=== PATIENT | female | born 1985 | race Hispanic/Latino ===

== ENCOUNTER 2018-12-16 22:04 | Emergency (ER) | payer SELFPAY ==
[2018-12-16 22:48] VITALS: BP 112/81
[2018-12-16] MEDS ORDERED: XYLOCAINE 1% MPF 5 mL INFILTRATI ONE (23:41)
[2018-12-16] MEDS ORDERED: ZITHROMAX PO ONE (23:41)
[2018-12-16] MEDS ORDERED: ROCEPHIN IM ONE (23:41)
[2018-12-17 00:10] LABS: HCG Qualitative,Urine Negative (Negative)
--- NOTE | 2018-12-17 00:43 | Emergency Department Report ---
ED Female HPI - General Chief complaint: Urogenital-Female Stated complaint: POSSIBLE STD Time Seen by Provider: 12/16/18 22:43 Source: patient Mode of arrival: Ambulatory Limitations: No Limitations - History of Present Illness Initial comments: Patient is A2 33-year-old white female who presents to the ED with complaint of vaginal discharge and states that she would like to be evaluated and tested for sexually transmitted disease because her sexual partner was recently tested and treated for chlamydia and gonorrhea. Patient denies fever, chills, dysuria, urinary frequency and urgency, pelvic pain, headache, chest pain or shortness of breath. MD Complaint: vaginal discharge, possible STD -: Sudden, days(s) (3) Location: suprapubic Radiation: non-radiating Severity: mild Severity scale (0 -10): 2 Quality: dull, burning Consistency: intermittent Improves with: none Worsens with: urination Are you Now?: No Last Menstrual Period: 12/09/18 EDC: 09/15/19 Associated Symptoms: denies other symptoms, vaginal discharge. denies: vaginal bleeding, abdominal pain, nausea/vomiting, fever/chills, headaches, loss of appetite, dysuria, hematuria, rash, seizure, shortness of breath, syncope - Related Data Sexually active: Yes : 4 Para: 2 A: 2 Previous Rx's Medication Instructions Recorded Last Taken Type methOCARBAMOL [Robaxin TAB] 500 mg PO Q6H PRN #14 tablet 08/30/18 Unknown Rx traMADol [Ultram] 50 mg PO Q6HR PRN #12 tablet 08/30/18 Unknown Rx Ondansetron [Zofran Odt] 4 mg PO Q6HR PRN #15 tab.rapdis 12/17/18 Unknown Rx metroNIDAZOLE [Flagyl] 500 mg PO Q12HR #20 tab 12/17/18 Unknown Rx Allergies Allergy/AdvReac Type Severity Reaction Status Date / Time acetaminophen [From Tylenol] Allergy Unknown Verified 08/30/18 13:58 ibuprofen [From Motrin] Allergy Unknown Verified 08/30/18 13:58 ED Review of Systems ROS: Stated complaint: POSSIBLE STD Other details as noted in HPI Comment: All other systems reviewed and negative Constitutional: denies: chills, fever Eyes: denies: eye pain, eye discharge, vision change ENT: denies: ear pain, throat pain Respiratory: denies: cough, shortness of breath, wheezing Cardiovascular: denies: chest pain, palpitations Endocrine: no symptoms reported Gastrointestinal: denies: abdominal pain, nausea, diarrhea Genitourinary: urgency, frequency, discharge. denies: dysuria, hematuria, abnormal menses, dyspareunia Musculoskeletal: denies: back pain, joint swelling, arthralgia Skin: denies: rash, lesions Neurological: denies: headache, weakness, paresthesias Psychiatric: denies: anxiety, depression Hematological/Lymphatic: denies: easy bleeding, easy bruising ED Past Medical Hx - Past Medical History Previous Medical History?: Yes Additional medical history: Vaginal delivery x 2, increased spinal fluid with headaches - Surgical History Past Surgical History?: Yes Hx Cholecystectomy: Yes Additional Surgical History: multiple spinal taps - Social History Smoking Status: Never Smoker Substance Use Type: None - Medications Home Medications: Home Medications Medication Instructions Recorded Confirmed Last Taken Type methOCARBAMOL [Robaxin TAB] 500 mg PO Q6H PRN #14 tablet 08/30/18 Unknown Rx traMADol [Ultram] 50 mg PO Q6HR PRN #12 tablet 08/30/18 Unknown Rx Ondansetron [Zofran Odt] 4 mg PO Q6HR PRN #15 tab.rapdis 12/17/18 Unknown Rx metroNIDAZOLE [Flagyl] 500 mg PO Q12HR #20 tab 12/17/18 Unknown Rx ED Physical Exam - General Limitations: No Limitations General appearance: alert, in no apparent distress - Head Head exam: Present: atraumatic, normocephalic, normal inspection - Eye Eye exam: Present: normal appearance, PERRL, EOMI. Absent: scleral icterus, conjunctival injection, nystagmus Pupils: Present: normal accommodation - ENT ENT exam: Present: normal exam, normal orophraynx, mucous membranes moist, TM's normal bilaterally, normal external ear exam - Neck Neck exam: Present: normal inspection, full ROM - Respiratory Respiratory exam: Present: normal lung sounds bilaterally. Absent: respiratory distress, wheezes, rales, rhonchi, chest wall tenderness, accessory muscle use, prolonged expiratory - Cardiovascular Cardiovascular Exam: Present: regular rate, normal rhythm, normal heart sounds. Absent: systolic murmur, diastolic murmur, rubs, gallop - GI/Abdominal GI/Abdominal exam: Present: soft, normal bowel sounds. Absent: distended, tenderness, guarding, rebound, hyperactive bowel sounds, hypoactive bowel sounds, organomegaly, bruit - Bi-manual exam: Present: other (deferred) - Extremities Exam Extremities exam: Present: normal inspection, full ROM, normal capillary refill - Back Exam Back exam: Present: normal inspection, full ROM. Absent: tenderness, CVA tenderness (R), CVA tenderness (L), muscle spasm, paraspinal tenderness, vertebral tenderness - Neurological Exam Neurological exam: Present: alert, oriented X3, CN II-XII intact, normal gait, reflexes normal - Psychiatric Psychiatric exam: Present: normal affect, normal mood - Skin Skin exam: Present: warm, dry, intact, normal color. Absent: rash ED Course Vital Signs 12/16/18 22:43 Temperature 98.8 F Pulse Rate 97 H Respiratory 16 Rate Blood Pressure 112/81 O2 Sat by Pulse 97 Oximetry - Reevaluation(s) Reevaluation #1: 12/17/18 02:09 This is 33-year-old white female who presented to the ED for evaluation for STD after being exposed by her sexual partner. In the ED, patient is alert and jaime ented 3 and is not in distress. Chlamydia and gonorrhea tests are pending. Urinalysis is unremarkable. Patient was empirically treated for gonorrhea and Chlamydia in the ED and discharged home on Flagyl for suspected trichomoniasis infection. The patient was advised to follow up with [facility] for further tests for STD. Patient is advised to return to the ED immediately if symptoms get worse. ED Medical Decision Making - Medical Decision Making This is 33-year-old white female who presented to the ED for evaluation for STD after being exposed by her sexual partner. In the ED, patient is alert and oriented 3 and is not in distress. Chlamydia and gonorrhea tests are pending. Urinalysis is unremarkable. Patient was empirically treated for gonorrhea and Chlamydia in the ED and discharged home on Flagyl for suspected trichomoniasis infection. The patient was advised to follow up with [facility] for further tests for STD. Patient is advised to return to the ED immediately if symptoms get worse. - Differential Diagnosis STD; Acute UTI; Trichomonas infection; Urethritis Critical care attestation.: If time is entered above; I have spent that time in minutes in the direct care of this critically ill patient, excluding procedure time. ED Disposition Clinical Impression: STD (sexually transmitted disease), Urethritis, nonspecific, Vaginal discharge, Bacterial vaginosis Disposition: - TO HOME OR SELFCARE Is pt being admited?: No Does the pt Need Aspirin: No Condition: Stable Instructions: Sexually Transmitted Diseases (ED), Trichomoniasis (ED), Chlamydia Infection (ED), Bacterial Vaginosis (ED) Additional Instructions: Take medications with food, follow-up with [facility] for further test for STD. Return to the ED immediately if symptoms get worse. Prescriptions: metroNIDAZOLE [Flagyl] 500 mg PO Q12HR #20 tab Ondansetron [Zofran Odt] 4 mg PO Q6HR PRN #15 tab.rapdis PRN Reason: Nausea Referrals: [facility] [Outside] - 3-5 Days Forms: STI Treatment and Prevention Time of Disposition: 02:06 Print Language: URDU
[2018-12-17 01:48] LABS: Bilirubin,Urine NEG (Negative); Blood,Urine NEG (Negative); Color,Urine Yellow (Yellow); Mucus,Urine FEW /HPF; Protein,Urine <15 mg/dL mg/dL (Negative)
== END 2018-12-17 03:38 | disposition home or self-care (01) ==
LOC: ED 22:04
DX: N76.0 Acute vaginitis (principal); B96.89 Other specified bacterial agents as the cause of diseases classified elsewhere; A64 Unspecified sexually transmitted disease; N34.2 Other urethritis; Z88.5 Allergy status to narcotic agent; Z79.899 Other long term (current) drug therapy; Z90.49 Acquired absence of other specified parts of digestive tract
CPT/HCPCS: 81001; 81025; 96372; 99283; J0696